=== PATIENT | male | born 1980 | race Caucasian/White ===

== ENCOUNTER 2018-11-15 07:50 | Emergency (ER) | payer OTHER ==
--- NOTE | 2018-11-15 08:18 | EDPHY ---
H & P Stated Complaint: L arm pain Time Seen by Provider: 11/15/18 07:52 HPI/ROS: CHIEF COMPLAINT: Shooting pain down left arm HISTORY OF PRESENT ILLNESS: The patient presents to the ED after he has experienced a sharp shooting pain down his left arm twice over the past day. The patient was concerned about the possibility of a heart attack prompting his visit to the emergency department. He reports his uncle recently unexpectedly at the age of 56 from a massive [place]. The patient does report that he is active. He has no history of exertional chest pain or shortness of breath. The patient denies any asymmetric calf pain or swelling. He denies any pleuritic chest pain. The patient is now currently asymptomatic. The patient denies any neck pain or upper extremity weakness. He denies any history of fall or trauma. REVIEW OF SYSTEMS: A comprehensive 10 point review of systems is otherwise negative aside from elements mentioned in the history of present illness. Source: Patient Exam Limitations: No limitations - Personal History Current Tetanus/Diphtheria Vaccine: Unsure Current Tetanus Diphtheria and Acellular Pertussis (TDAP): Unsure - Medical/Surgical History Hx Asthma: Yes Hx Chronic Respiratory Disease: No Hx Diabetes: No Hx Cardiac Disease: No Hx Renal Disease: No Hx Cirrhosis: No Hx Alcoholism: No Hx HIV/AIDS: No Hx Splenectomy or Spleen Trauma: No Other PMH: UTI, asthma - Family History Significant Family History: Heart disease - Social History Smoking Status: Never smoked - Physical Exam Exam: General Appearance: Alert, no distress Eyes: Pupils equal and round no pallor or injection ENT, Mouth: Mucous membranes moist Respiratory: There are no retractions, lungs are clear to auscultation Cardiovascular: Regular rate and rhythm Gastrointestinal: Abdomen is soft and nontender, no masses, bowel sounds normal Neurological: A&O, normal motor function, normal sensory exam, normal cranial nerves Skin: Warm and dry, no rashes Musculoskeletal: Neck is supple nontender Extremities: symmetrical, full range of motion Constitutional: Initial Vital Signs Temperature (C) 36.6 C 11/15/18 07:54 Heart Rate 82 11/15/18 07:54 Respiratory Rate 16 11/15/18 07:54 Blood Pressure 149/83 H 11/15/18 07:54 O2 Sat (%) 98 11/15/18 07:54 O2 Delivery Mode Room Air Allergies/Adverse Reactions: sulfamethoxazole [From Bactrim] Allergy (Intermediate, Verified 07/21/18 14:42) Rash trimethoprim [From Bactrim] Allergy (Intermediate, Verified 07/21/18 14:42) Rash Sulfa (Sulfonamide Antibiotics) Allergy (Verified 11/15/18 07:54) Home Medications: Medication Instructions Recorded NK [No Known Home Meds] 11/15/18 Medical Decision Making - Diagnostics EKG Interpretation: EKG: Complete interpretation has been separately recorded in the [facility] [employer] [facility]. Summary impression: Sinus rhythm, rate 76 ED Course/Re-evaluation: Patient presents to the ED for evaluation of sharp left upper extremity pain which sounds to be more related to a peripheral nerve issue than acute coronary syndrome. The patient has a HEART score of 0. His EKG demonstrates no evidence of ischemia. His troponin is normal. At this point time I do not feel that further cardiac workup is indicated. The patient has been informed about the possibility of cervical radiculopathy. However at this point time he has no symptoms concerning for a acute neurosurgical emergency. Differential Diagnosis: Differential diagnosis considered includes cervical radiculopathy, peripheral neuropathy, acute coronary syndrome - Data Points Laboratory Results: 11/15/18 08:22 POC Troponin I 0.00 ng/mL ng/mL (0.00-0.08) Point of Care Test Results: Chemistry 11/15/18 08:22 POC Troponin I 0.00 ng/mL ng/mL (0.00-0.08) Point care troponin: 0.0 Departure - Departure Disposition: Home, Routine, Self-Care Clinical Impression: Arm pain, left Condition: Good Instructions: Arm Pain (ED) Additional Instructions: 1. The testing done in the emergency department today demonstrates no evidence of a obvious cardiac condition. 2. Return to the ED for worsening symptoms, chest pain, shortness of breath exertional symptoms or other concerns. 3. I do believe your symptoms are most likely related to a nerve phenomena. Please return to the ED for any weakness, numbness, neck pain or worsening neurologic symptoms. 4. I do recommend following up with your primary care provider as needed. Referrals: DAFNE MACKAY [Other] - As per Instructions
--- NOTE | 2018-11-15 08:23 | CPEKG ---
Test Reason : OPEN Blood Pressure : / mmHG Vent. Rate : 076 BPM Atrial Rate : 075 BPM P-R Int : 120 ms QRS Dur : 088 ms QT Int : 370 ms P-R-T Axes : 062 047 052 degrees QTc Int : 417 ms Sinus rhythm Confirmed by Taco Martinez ([id number]) on 11/15/2018 8:23:17 AM Referred By: Taco Martinez Confirmed By:Taco Martinez
[2018-11-15 08:46] VITALS: BP 131/78
== END 2018-11-15 08:47 | disposition home or self-care (01) ==
DX: M79.602 Pain in left arm (principal)
CPT/HCPCS: 84484-ER